=== PATIENT | female | born 1975 | race Caucasian/White ===

== ENCOUNTER 2023-05-13 20:16 | Outpatient (CLI) | payer MEDICAID ==
[~2023-05-13 20:16] MED LIST: ALB0.5V; ALPR.5T PO; ALPR2TAB6 PO; AMPH30TA2 PO; CITA10TA70 PO; DCS100C PO; HYDR-34 PO; HYDR-707 PO; HYDR1TAB PO; IBP600T1 PO; LAMO25TA4 PO; OXYC-12 PO; PRM25T PO; PROP10TA8 PO; PROP1TAB77; SMT80CT PO; SULF1TAB38 PO; ZLP10T PO
== END 2023-05-14 05:20 | disposition home or self-care (01) ==
LOC: SLEEP 20:16
PROVIDERS: ATTEND Family Medicine
DX: G47.33 Obstructive sleep apnea (adult) (pediatric) (principal)
CPT/HCPCS: 95810